=== PATIENT | female | born 1990 | race Caucasian/White ===

== ENCOUNTER 2016-06-20 00:33 | Observation (INO) ==
[2016-06-20 01:55] LABS: Bilirubin,Urine Negative (Negative); Blood,Urine Negative (Negative); Clarity,Urine Cloudy (Clear); Color,Urine Yellow (Yellow); Glucose,Urine (UA) Normal (Normal); Ketones,Urine Negative (Negative); Leukocyte Esterase,Urine Large (Negative); Nitrite,Urine Positive (Negative); Protein,Urine Trace mg/dL (Neg-Trace); Specific Gravity,Urine 1.022 (1.010-1.025); Urobilinogen,Urine Normal (Normal)
[2016-06-20 01:58] LABS: Bacteria,Urine Many per hpf (None-Few); Hyaline Casts,Urine None Seen per lpf (None-Few); Squamous Epithelial Cell,Urine Many per lpf (None-Few); WBC,Urine TNTC per hpf (0-3)
--- NOTE | 2016-06-20 03:27 | OB/GYN Progress Note ---
Date of Encounter: 06/20/16 Time of Encounter: 03:25 - Assessment and Plan (1) and not yet delivered in third trimester Current Visit: Yes Status: Acute (2) 29 weeks gestation of Current Visit: Yes Status: Acute (3) Urinary tract infection affecting care of mother in third trimester, antepartum Current Visit: Yes Status: Acute We will discharge patient home with a prescription for Macrobid 100 mg twice a day for 10 days to follow-up in the office this week (4) uterine contractions in third trimester, antepartum Current Visit: Yes Status: Acute Subjective - Subjective Interval history: Patient is a 25-year-old 3 para 2 at 29-3/7 weeks who presented to labor and delivery with complaint of contractions for the past 4 days with lower abdominal discomfort. Patient has a history of 2 previous sections. Did not bother: The office about this contractions. Patient was advised to come to labor and delivery for evaluation. Upon arrival she had multiple complaints that most of them were easily transected. Patient was show no since contractions on the monitor she was unable to give us a urinalysis but she was complaining of urinary symptoms. Patient has a history of frequent UTIs. She was unable to give us a urine had a very dark coloration and a foul odor. Urinalysis did come back showing she looked like she had a UTI with nitrates and leukocytes and many bacteria. Patient will be discharged home with prescription for Macrobid 100 mg twice a day we just recently on Keflex so we will try something different. She is having good movement at this time and no vaginal bleeding. Antepartum ROS: contractions Objective - Vital Signs Vital Signs: Intake and Output 06/19/16 06/19/16 06/20/16 15:59 23:59 08:59 Other: Weight 83.3 kg Patient Weight 06/21/16 00:59 Weight 83.3 kg - Exam FHR: category 1 FHR comments: heart tones 140s reactive no contraction seen Abdomen: Present: gravid Uterus: Present: firm Cervical dilation: No cervical exam performed since no contraction seen and only 29 weeks - Labs Labs: Abnormal lab results Urine Clarity Cloudy (Clear) A 06/20/16 01:35 Urine Nitrite Positive (Negative) A 06/20/16 01:35 Ur Leukocyte Esterase Large (Negative) H 06/20/16 01:35 Urine Microscopic RBC 3-5 per hpf (0-3) H 06/20/16 01:35 Urine Microscopic WBC TNTC per hpf (0-3) H 06/20/16 01:35 Ur Squamous Epith Cells Many per lpf (None-Few) H 06/20/16 01:35 Urine Bacteria Many per hpf (None-Few) H 06/20/16 01:35 Ur Culture Indicated? YES (NO) A 06/20/16 01:35
== END 2016-06-20 03:36 | disposition home or self-care (01) ==
LOC: 1NENULAB
PROVIDERS: ADMIT Obstetrics & Gynecology; ATTEND Obstetrics & Gynecology

== ENCOUNTER 2016-06-30 16:34 | Observation (INO) ==
--- NOTE | 2016-06-30 20:11 | OB/GYN Progress Note ---
Date of Encounter: 06/30/16 Time of Encounter: 19:30 - Assessment and Plan (1) 31 weeks gestation of Status: Acute (2) and not yet delivered in third trimester Status: Acute (3) Abdominal cramping affecting Status: Acute No contractions on the monitor. Patient was seen and evaluated by nursing. She desired discharge home before being seen and was not erick. She received her second dose of steroids in the office today prior to coming over. Objective - Vital Signs Vital Signs: Intake and Output 06/30/16 06/30/16 06/30/16 07:59 15:59 23:59 Other: Weight 85.4 kg Patient Weight 06/30/16 23:59 Weight 85.4 kg
== END 2016-06-30 19:59 | disposition home or self-care (01) ==
LOC: 1NENULAB
PROVIDERS: ADMIT Obstetrics & Gynecology; ATTEND Obstetrics & Gynecology

== ENCOUNTER 2016-08-16 21:51 | Observation (INO) ==
[2016-08-16 22:13] VITALS: BP 119/74
[2016-08-16 22:29] LABS: Bilirubin,Urine Negative (Negative); Blood,Urine Negative (Negative); Clarity,Urine Cloudy (Clear); Color,Urine Yellow (Yellow); Glucose,Urine (UA) Normal (Normal); Ketones,Urine Negative (Negative); Leukocyte Esterase,Urine Large (Negative); Nitrite,Urine Positive (Negative); Protein,Urine Trace mg/dL (Neg-Trace); Specific Gravity,Urine 1.022 (1.010-1.025); Urobilinogen,Urine Normal (Normal)
[2016-08-16 22:31] LABS: Bacteria,Urine Many per hpf (None-Few); RBC,Urine 0-3 per hpf (0-3); Squamous Epithelial Cell,Urine Many per lpf (None-Few); WBC,Urine TNTC per hpf (0-3)
[2016-08-16 22:42] LABS: Hyaline Casts,Urine None Seen per lpf (None-Few); Mucus,Urine Moderate (Few)
--- NOTE | 2016-08-16 22:53 | Discharge Summary ---
Date of Encounter: 08/16/16 Time of Encounter: 22:45 - Discharge Diagnosis (1) Urinary tract infection affecting care of mother in third trimester, antepartum Priority: Primary Status: Acute Comments: Patient presents to labor and delivery with c/o leaking clear fluid frequently from the vagina. She states the leaking occurs more when leaning forward or walking. She states the leaking does not soak through to her pants. She c/o intermittent contractions throughout the past few days, but is not in pain. She states positive movement. She denies headache, vision changes, and epigastric pain. She denies vaginal bleeding and intercourse in the past 48 hours. She is scheduled for a repeat next Tuesday. Urinalysis indicative of UTI Rx sent home for patient to fill in the morning Follow up in office as scheduled for routine care Education provided on SROM, Kick counts, and Labor Precautions - Discharge Medications Prescriptions: Cephalexin 1,000 mg PO Q12H 10 Days Home Medications: Flintstones Gummies PO DAILY 06/20/16 [History] Cephalexin 1,000 mg PO Q12H 10 Days 08/16/16 [Rx] Allergies/Adverse Reactions: Allergies escitalopram [From Lexapro] Allergy (Verified 01/22/16 18:46) Swelling of Lip/Tongue/Throat magnesium Allergy (Verified 06/30/16 17:24) See Comments tachycardia promethazine [From Phenergan] Allergy (Verified 01/22/16 18:46) Flushing Carbinoxamine [From Rondec] Adverse Reaction (Verified 06/20/16 01:04) Agitated codeine Adverse Reaction (Verified 06/20/16 01:03) Nausea pseudoephedrine [From Rondec] Adverse Reaction (Verified 06/20/16 01:04) Agitated Data Procedures and tests throughout hospitalization: Laboratory Tests 08/16/16 22:19 Urine Color Yellow Urine Clarity Cloudy A Urine pH 6.0 Ur Specific Murdock 1.022 Urine Protein Trace Urine Glucose (UA) Normal Urine Ketones Negative Urine Blood Negative Urine Nitrite Positive A Urine Bilirubin Negative Urine Urobilinogen Normal Ur Leukocyte Esterase Large H Urine Microscopic RBC 0-3 Urine Microscopic WBC TNTC H Ur Squamous Epith Cells Many H Urine Bacteria Many H Hyaline Casts None Seen Urine Mucus Moderate H Ur Culture Indicated? YES A Labs on day of discharge: Labs from last 24 hours 08/16/16 22:19 Urine Color Yellow Urine Clarity Cloudy A Urine pH 6.0 Ur Specific Murdock 1.022 Urine Protein Trace Urine Glucose (UA) Normal Urine Ketones Negative Urine Blood Negative Urine Nitrite Positive A Urine Bilirubin Negative Urine Urobilinogen Normal Ur Leukocyte Esterase Large H Urine Microscopic RBC 0-3 Urine Microscopic WBC TNTC H Ur Squamous Epith Cells Many H Urine Bacteria Many H Hyaline Casts None Seen Urine Mucus Moderate H Ur Culture Indicated? YES A Date of admission: 08/16/16 21:51 Primary care physician: PCP NO Discharging clinician: Chayo Ferraro - Patient Status Disposition: Home, Self-Care Condition: Good Functional capacity at discharge: independent ambulation - Discharge Instructions Instructions: Urinary Tract Infection in Women (DC) Follow Up With: NO,PCP [Primary Care Provider] - Amrik Boone MD [Partnered Physician] - Additional Instructions: LABOR AND DELIVERY DISCHARGE INSTRUCTIONS Signs and Symptoms to be Reported to your Doctor Immediately: * Sudden gush, continuous or intermittent lead of fluid from vagina (note the time of gush and color of fluid) * Onset of bright red vaginal bleeding with or without pain (if you had a vaginal exam during this visit you may notice some dark red spotting. This is normal.) * Contractions that are 5 minutes apart (from the beginning of one contraction to the beginning of the next) and last 45-60 seonds; contractions that you can no longer walk, talk or laugh through. * A change in the baby's activity. This could be an increase or decrease in activity. * Severe headache which does not go away with tylenol. * Sudden swelling in the face, hands, arms and/or legs. * Upper abdominal pain - sometimes associated with heartburn or nausea and is not relieved by Maalox, Mylanta or Tums. * Kick Counts __ One hour after a meal, lay down on one side in a quiet place. Count the number of time the baby moves during an hour. If less than 6 movements, notify your physician Diet: *Force fluids, 8 to 10 tall glasses of fluid per day - may include popsicles and jello *Limit caffeine - this includes chocolate, coffee, tea, any soft drink containing such as all eulalia, Merrick Yellow and Mountain Dew - Diet and Activity Diet: regular diet Hospital Course GUIDANCE DIRECTOR Time Attestation: Total time spent providing and/or coordinating discharge services: Time Spent: Less than 30 minutes Exam - Constitutional Vitals: Temp Pulse Resp BP 98.7 F 116 16 119/74 08/16/16 22:01 08/16/16 22:01 08/16/16 22:01 08/16/16 22:01 General appearance IM: cooperative, A&O X 3, pleasant - Respiratory Respiratory exam: Present: CTAB - Cardiovascular Cardiovascular exam IM: Present: RRR, +S1, +S2 - GI/Abdominal GI/Abdominal exam IM: normal bowel sounds, soft - Additional comments: Uterus palpates soft. No contractions palpable or per TOCO FHTs 115 with moderate variability and 15x15 accels. No decels present - Extremities Exam Extremities exam IM: Present: normal capillary refill, normal inspection, radial pulses palpable and symetrical - Neurological Exam Neurological exam: alert, oriented X3 - VTE Reasons for not Prescribing Prophylaxis: Treatment not Indicated - Low risk for VTE
== END 2016-08-16 23:00 | disposition home or self-care (01) ==
LOC: 1NENULAB
PROVIDERS: ADMIT Obstetrics & Gynecology; ATTEND Obstetrics & Gynecology

== ENCOUNTER 2016-08-18 22:18 | Observation (INO) ==
--- NOTE | 2016-08-18 22:42 | Discharge Summary ---
Date of Encounter: 08/18/16 Time of Encounter: 22:43 - Discharge Diagnosis (1) 38 weeks gestation of Priority: Primary Status: Acute Comments: observations for rule out rupture of membranes. (2) NST (non-stress test) reactive Priority: Secondary Status: Acute Comments: baseline 130 bpm moderate variability +15x15 accels no decels noted. - Discharge Medications Home Medications: Flintstones Gummies PO DAILY 06/20/16 [History] cephALEXin [Cephalexin] 1,000 mg PO Q12H 10 Days 08/16/16 [Rx] Allergies/Adverse Reactions: Allergies escitalopram [From Lexapro] Allergy (Verified 01/22/16 18:46) Swelling of Lip/Tongue/Throat magnesium Allergy (Verified 06/30/16 17:24) See Comments tachycardia promethazine [From Phenergan] Allergy (Verified 01/22/16 18:46) Flushing Carbinoxamine [From Rondec] Adverse Reaction (Verified 06/20/16 01:04) Agitated codeine Adverse Reaction (Verified 06/20/16 01:03) Nausea pseudoephedrine [From Rondec] Adverse Reaction (Verified 06/20/16 01:04) Agitated Date of admission: 08/18/16 22:18 Discharging clinician: Dior Mann Anticipated date of discharge: 08/18/16 - Patient Status Disposition: Home, Self-Care Condition: Good - Discharge Instructions - Diet and Activity Activity: increase activity as tolerated Diet: regular diet Hospital Course SLABBER LIGHT Hospital course: Patient is 26 y/o at 38w0d. Presented to labor and delivery with questionable rupture of membranes. Patient denies any leaking since small gush of fluid following bending over. Patient reports +FM, denies any new leaking of fluid or regular contractions. Time Attestation: Total time spent providing and/or coordinating discharge services: Time Spent: Less than 30 minutes Exam - Other Additional findings: Patient seen and assessed by RN. RN reports perineum is dry, nitrazine is negative. Patient reports urine leaks all the time with bending and jumping. SVE by RN 1-2 cm and bollatable. FHR 130 bpm moderate variability +15x15 accels no decels noted. Irregular contractions. Cat 1 Tracing. Reactive NST. - VTE Reasons for not Prescribing Prophylaxis: Treatment not Indicated - Low risk for VTE
== END 2016-08-18 23:00 | disposition home or self-care (01) ==
LOC: 1NENULAB
PROVIDERS: ADMIT Obstetrics & Gynecology; ATTEND Obstetrics & Gynecology

== ENCOUNTER 2016-08-20 19:16 | Inpatient (IN) ==
--- NOTE | 2016-08-20 18:24 | OB/GYN History & Physical ---
Date of Encounter: 08/20/16 Time of Encounter: 18:14 Assessment and Plan (1) Uterine contractions during Current visit: Yes Status: Acute FHT's 140's with moderate variability, 15x15 accels, and no decels Category I tracing TOCO contractions every 2-4 minutes lasting 45 seconds in length. Palpate moderate. uterus palpates soft between contractions IV fluids Nubain for rest Serial SVE for cervical change Discussed POC with Dr De (2) Urinary tract infection affecting care of mother in third trimester, antepartum Current visit: Yes Status: Acute Start IV ampicillin 1gm q6 hours for UTI; may switch to PO when patient is no longer PO IV fluids (3) Previous delivery affecting Current visit: Yes Status: Acute Monitor serial SVEs for cervical change Dr De aware of patient's current status Possible repeat tonight History of Present Illness Chief complaint: contractions HPI: Ms. Nair is a 26 year old at 38 weeks and 2 days gestation that presents to labor and delivery with complaints of frequent contractions with low back pain and diarrhea that began at 0200. She was seen in triage on Tuesday with complaints of leaking fluid and found to have a urinary tract infection that cultured positive for e. Coli. The patient states she was not taking her medication that was Rx'd. She states positive movement. She denies LOF, vaginal bleeding, headache, vision changes, and epigastric pain. She received betamethasone previously during this for history of and threatened labor. On 08/17/16 she was seen in the office and had a growth scan completed which shows an CHARLETTE of 14 and an LGA fetus greater than the 90th percentile. Labs: GBS negative Blood Type O+ antibody negative Hep B nonreactive HIV nonreactive Treponema negative Rubella immune Varicella immune Past Med Surg Social Fam HX - Past Medical History Medical history: asthma, GERD Psychiatric history: anxiety, depression - Past Surgical History Surgical History: appendectomy, - Social History Smoking Status: Former smoker Smokeless Tobacco Status: No Alcohol use: none Drug use: none - Family History Grandmother Adopted: No Family Member Ethnicity: Non- Living Status: Still Living Hx Family Cardiac Disorders: No Hx Family Respiratory Disorders: No Hx Family Cancer: No Hx Family GI Disorders: No Hx Family Genitourinary Disorders: No Hx Family Endocrine Disorder: No Hx Family Musculoskeletal Disorders: No Hx Family Neuromuscular Disorders: No Hx Family Neurologic Disorders: No Hx Family HEENT Disorders: No Hx Family Autoimmune Disorders: No Hx Family Reproductive Disorders: No Hx Family Psychosocial Disorders: No Hx Family Medical Disorders: No Obstetrical History - Pregnancies : 3 Para: 2 Livin Medications and Allergies Flintstones Gummies 1 tab PO DAILY 06/20/16 [History] Ampicillin Trihydrate 500 mg PO Q6H #28 capsule 08/20/16 [Rx] Allergies escitalopram [From Lexapro] Allergy (Verified 01/22/16 18:46) Swelling of Lip/Tongue/Throat magnesium Allergy (Verified 06/30/16 17:24) See Comments tachycardia promethazine [From Phenergan] Allergy (Verified 01/22/16 18:46) Flushing Carbinoxamine [From Rondec] Adverse Reaction (Verified 06/20/16 01:04) Agitated codeine Adverse Reaction (Verified 06/20/16 01:03) Nausea pseudoephedrine [From Rondec] Adverse Reaction (Verified 06/20/16 01:04) Agitated Review of System OB All systems PM: reviewed and no additional remarkable complaints except as stated Exam - Constitutional Constitutional: well developed, well nourished, no acute distress, average body habitus - HEENT HEENT: Normocephaly, Mucus Membranes Moist - Neck Neck exam: full ROM, normal inspection - Lungs Respiratory exam: CTAB - Cardiovascular Cardiovascular exam: RRR, +S1, +S2 - Abdomen Abdomen: Present: bowel sounds normal, gravid, non tender - Extremities Extremities exam: normal capillary refill, normal inspection, warm, radial pulses palpable and symetrical Deep Tendon Reflex Grade: 1+ Diminished - Vagina Vagina: Present: normal moisture - Cervix Dilation: 2 (per RN) Effacement: 50 (per RN) Station: -2 - Uterus Uterus exam: Present: normal size, normal contour - Anus/Rectum Anus/Rectum: Present: normal perianal skin Results All other labs normal. - VTE Reasons for not Prescribing Prophylaxis: Treatment not Indicated - Low risk for VTE
[2016-08-20 18:47] LABS: Basophils % 0.3 %; Eosinophils # 0.1 K/mcL (0.0-0.6); Eosinophils % 0.8 %; Hematocrit 29.8 % (35.3-44.9); Hemoglobin 8.9 g/dL (11.5-15.4); Immature Granulocytes % 1.8 % (0-4); Lymphocytes # 1.4 K/mcL (0.6-4.6); Mean Corpuscular HGB Conc 29.9 g/dL (31.6-35.5); Mean Corpuscular Hemoglobin 22.5 pg (28.0-33.3); Mean Corpuscular Volume 75.3 fL (83.0-100.0); Mean Platelet Volume 10.6 fL (9.4-12.4); Monocytes # 0.6 K/mcL (0.0-1.3); Monocytes % 6.2 %; Neutrophils # 7.2 K/mcL (1.6-8.9); Platelet Count 200 K/mcL (140-400); Red Blood Count 3.96 M/mcL (3.82-4.97); Red Cell Distribution Width 19.2 % (11.5-14.5); Segmented Neutrophils % 75.9 %
[~2016-08-20 19:16] MED LIST: *HR* Nalbuphine 20 MG/ML AMPUL IVP PRN; Ampicillin 1,000 MG in 0.9 % Sodium Chloride Mini Bag 100 ML IVPB ONE; D5% in Lactated Ringers 1,000 ML IVC ONE; D5% in Lactated Ringers 1,000 ML IVC SCH; Ondansetron ODT 4 MG TAB.RAPDIS SL PRN; Ringers Solution, Lactated 1,000 ML IVC ONE; Ringers Solution, Lactated 1,000 ML ONE
--- NOTE | 2016-08-20 19:42 | OB Labor Progress Note ---
Date of Encounter: 08/20/16 Time of Encounter: 19:39 Labor Progress Note - Subjective Subjective: Patient breathing through contractions in the bed. States the nubain made her feel strange - Vital Signs Vital Signs: VSS - Cervix Cervix: 3/70/-2 soft anterior - Heart Tones Heart Tones: FHTs 130 with moderate variability, 15 x 15 accels, no decels - [place] Whitney [place]: Contractions every 2-4 minutes, 60 seconds in length - Plan Plan: Dr De notified of cervical change. States she is to have a section this evening.
[2016-08-20] MEDS ORDERED: Famotidine 20 MG/2 ML VIAL IVP ONE (19:49)
[2016-08-20] MEDS ORDERED: Metoclopramide 10 MG/2 ML VIAL IVP ONE (19:49)
[2016-08-20] MEDS ORDERED: Oxytocin 20 units/ LR 1000 mL 20 UNIT/1,000 ML BAG IVC ONE (19:49)
[2016-08-20] MEDS ORDERED: CeFAZolin Pre 2,000 MG/100 ML 2,000 MG/100 ML BAG IVPB ONE (19:49)
[2016-08-20] MEDS ORDERED: Ringers Solution, Lactated 1,000 ML ONE ×3 (19:50→21:45)
[2016-08-20] MEDS ORDERED: Ringers Solution, Lactated 1,000 ML IVC SCH (20:00)
[2016-08-20] MEDS ORDERED: *HR* Morphine Sulfate/PF 5 MG/10 ML AMPUL ONE (20:18)
[2016-08-20] MEDS ORDERED: EPHEDrine 50 MG/ML VIAL ONE (20:21)
[2016-08-20] MEDS ORDERED: *HR* Oxytocin 10 UNIT/ML VIAL IM ONE ×2 (20:24→21:48)
--- NOTE | 2016-08-20 21:19 | Anesthesia Evaluation PreOp ---
Date of Encounter: 08/20/16 Time of Encounter: 18:45 - Past History Planned Operation: repeat c section Cardiac History: Denies any Significant Hx Pulmonary History: Asthma (as a child) FORECAST ANALYST History: Denies Any Significant HX Other Medical History: GERD Anesthesia History: No Prior Anesthetic Complications (bladder stretch, scalp cyst, appendectomy, c section x 2, ear tubes) Alcohol Use: none Drug use: none Medications and Allergies Flintstones Gummies 1 tab PO DAILY 06/20/16 [History] Ampicillin Trihydrate 500 mg PO Q6H #28 capsule 08/20/16 [Rx] Allergies escitalopram [From Lexapro] Allergy (Verified 01/22/16 18:46) Swelling of Lip/Tongue/Throat magnesium Allergy (Verified 06/30/16 17:24) See Comments tachycardia promethazine [From Phenergan] Allergy (Verified 01/22/16 18:46) Flushing Carbinoxamine [From Rondec] Adverse Reaction (Verified 06/20/16 01:04) Agitated codeine Adverse Reaction (Verified 06/20/16 01:03) Nausea pseudoephedrine [From Rondec] Adverse Reaction (Verified 06/20/16 01:04) Agitated - Meds/Allergy Pre-op Review Medications Reviewed: Yes Allergies Reviewed: Yes Beta Blockers on Current Med List: No Anesthesia Results - Labs 08/20/16 18:38 Anesthesia Exam 3 Vital Signs Time 1845 BP 133/82 Pulse 126 Resp 18 O2 Sat Height: 65 Weight: 188 pounds NPO (# of Hours): 12 Pain Scale: 2 Pain Scale Used: Numeric (1 - 10) - HEENT Pupil (Motor): Pupils equal Mallampati: II Teeth: Normal Oral Opening: Greater than 3 - FORECAST ANALYST LOC: Oriented FORECAST ANALYST Motor: Normal RUE, Normal LUE, Normal RLE, Normal LLE, Normal Face FORECAST ANALYST Sensory: Normal: RUE, LUE, RLE, LLE, Face - Cardiac Rhythm: Regular Murmur: None JVD: No Carotid Bruit: No - Pulmonary Breath Sounds: bilateral Clear Respiratory Effort: Symmetrical Anesthesia Assess/Plan ASA Score: 2 Modified Mario Scale for Level of Consciousness: Cooperative, oriented, and tranquil Anesthetic Plan: Regional Monitoring Plan: Standard Monitors Recovery Plan: PACU
[2016-08-20] MEDS ORDERED: Ondansetron 4 MG/2 ML VIAL IVP PRN ×2 (21:28→22:21)
[2016-08-20] MEDS ORDERED: *HR* HYDROmorphone (PF) 1 MG/ML SYRINGE IVP PRN (21:28)
[2016-08-20] MEDS ORDERED: *HR* OxyCODONE/APAP 5/325 TABLET PO PRN ×2 (21:28→22:21)
[2016-08-20] MEDS ORDERED: Ibuprofen 400 MG TABLET PO PRN (21:28)
[2016-08-20] MEDS ORDERED: *HR* Morphine 2 MG/ML SYRINGE IVP PRN (21:28)
[2016-08-20] MEDS ORDERED: Naloxone 0.4 MG/ML INJ IVP PRN (21:28)
[2016-08-20] MEDS ORDERED: Acetaminophen IV 1,000 MG/100 ML INFUS..BTL IVPB ONE (21:36)
[2016-08-20] MEDS ORDERED: *HR* Midazolam HCl 2 MG/2 ML VIAL ONE (21:42)
[2016-08-20] MEDS ORDERED: Metoclopramide 10 MG/2 ML VIAL IVP PRN (22:21)
[2016-08-20] MEDS ORDERED: Simethicone 80 MG TAB.CHEW PO PRN (22:21)
[2016-08-20] MEDS ORDERED: Sennosides 8.6 MG TABLET PO PRN (22:21)
--- NOTE | 2016-08-20 22:27 | OB/GYN Procedure Note ---
Section - Date of procedure: 08/20/16 Preop diagnosis: desires repeat , desires sterilization Post-op diagnosis: same Procedure: repeat low transverse, bilateral tubal ligation Surgeon: Mohit De Estimated blood loss (cc): 500 Anesthesiologist: Kassy Link Anesthesia Type: Spinal section complications: none Disposition: PACU Specimens: Placenta, Right tube segment, Left tube segment - (s) A Delivery Date: 08/20/16 Delivery Time: 21:26 Presentation: vertex Gender: Male Pounds: 7 Ounces: 8 at 1 minute: 8 at 5 minutes: 9 Specimens collected: cord blood Placenta: complete extraction - Narrative Narrative: The patient was taken to the operating room. After satisfactory anesthesia was achieved, she was placed in supine position Sue catheter inserted and prepped and draped in usual manner. After appropriate timeout, the abdomen was entered through standard Maylard incision. The Luz retractor was placed. The peritoneum overlying the lower uterine segment was incised in the U-shaped fashion. Uterine cavity was entered sharply extended laterally. Membranes ruptured which yielded clear fluid. With fundal pressure , the head was delivered. suctioned upon delivery of the head. Nuchal cord was relieved. The remainder of the was delivered , umbilical cord doubly clamped and cut, and handed to nursery staff for further evaluation. Placenta was removed. Uterus closed in single layer using 0 Monocryl. Attention then turned to the tubal. The distal end of each tube was resected and sent to pathology for analysis. Pedicles were ligated using a 2-0 chromic. After assurance of hemostasis, the peritoneum was reapproximated with a 2-0 Vicryl. The Luz retractor was removed. The abdomen was closed in fashion using 0 Vicryl on the fascia, 3-0 Monocryl on the skin. Sterile dressing was applied. Patient did well and was taken to recovery room in satisfactory condition. Counts were correct.
[2016-08-20] MEDS ORDERED: Oxytocin 20 units/ LR 1000 mL 20 UNIT/1,000 ML BAG IVC SCH (22:30)
[2016-08-21] MEDS ORDERED: Ampicillin 1,000 MG in 0.9 % Sodium Chloride Mini Bag 100 ML IVPB SCH
--- NOTE | 2016-08-21 00:23 | Anesthesia Evaluation Post Op ---
Date of Encounter: 08/21/16 Time of Encounter: 00:14 - Vital Signs Vital Signs: 3 Vital Signs Time 0014 BP 107/61 Pulse 117 Resp 16 O2 Sat 98 - Lungs Lungs: Clear Ascult./Percussion - Airway Airway: Non-obstructed - Cardiovascular Regular Rate - Mental Status Mental Status: Alert & Oriented, Answers Appropriately, Baseline Status - Pain Pain Scale: 0 Pain Scale used: Numeric (1 - 10) - Nausea Vomiting Nausea Vomiting: Not Present - Hydration Hydration: NPO, Sue catheter Notes: 08/21/16 00:22 patient moving legs well at present - Discharge PostOp Status: Transfer Patient to floor
[2016-08-21 03:01] LABS: Basophils % 0.4 %; Eosinophils % 0.4 %; Hematocrit 26.1 % (35.3-44.9); Hemoglobin 7.9 g/dL (11.5-15.4); Immature Granulocytes % 1.4 % (0-4); Lymphocytes # 1.7 K/mcL (0.6-4.6); Lymphocytes % 15.7 %; Mean Corpuscular HGB Conc 30.3 g/dL (31.6-35.5); Mean Corpuscular Hemoglobin 22.4 pg (28.0-33.3); Mean Corpuscular Volume 74.1 fL (83.0-100.0); Mean Platelet Volume 10.6 fL (9.4-12.4); Monocytes # 0.7 K/mcL (0.0-1.3); Monocytes % 6.3 %; Neutrophils # 8.4 K/mcL (1.6-8.9); Platelet Count 173 K/mcL (140-400); Red Blood Count 3.52 M/mcL (3.82-4.97); Red Cell Distribution Width 18.9 % (11.5-14.5); Segmented Neutrophils % 75.8 %
[2016-08-21] MEDS ORDERED: *HR* Phenylephrine 10 MG/ML VIAL ONE (06:43)
[2016-08-21] MEDS: Prenatal Vit/FA 1 EACH TABLET PO SCH (08:09)
--- NOTE | 2016-08-21 10:22 | OB/GYN Progress Note ---
Date of Encounter: 08/21/16 Time of Encounter: 10:20 - Assessment and Plan (1) S/P section Current Visit: Yes Status: Acute Routine postop care (2) Previous delivery affecting Current Visit: Yes Status: Acute Subjective - Subjective Interval history: Patient is POD #1 for repeat section. No comlaints currently. Patient reports: appetite normal, voiding normally, pain well controlled, ambulating normally : doing well Objective - Vital Signs Latest vital signs: Vital Signs Temp Pulse Resp BP Pulse Ox 08/21/16 03:45 98.8 F 102 16 106/73 97 08/21/16 02:45 98.2 F 91 16 104/68 96 08/21/16 01:45 98.4 F 104 14 100/62 97 08/21/16 01:17 16 08/21/16 01:16 98.1 F 96 16 110/72 97 08/21/16 00:45 98.5 F 106 18 109/72 96 Intake and Output 08/20/16 08/21/16 08/21/16 23:59 07:59 15:59 Output Total 1500 / 1500 Balance -1500 / -1500 Output: Catheter 1500 / 1500 Other: Weight 82.372 kg Patient Weight 08/21/16 23:59 Weight 82.372 kg - Exam Lungs: bilateral: normal Chest: Normal S1, Normal S2 Extremities: Present: normal Abdomen: Present: normal appearance, soft. Absent: distention, tenderness Incision: Present: normal, dry, intact Uterus: Present: normal, firm Fundal Height: 0 - Labs Labs: Laboratory Results - last 24 hr 08/20/16 08/20/16 08/21/16 18:38 20:01 02:53 WBC 9.5 11.0 RBC 3.96 3.52 L Hgb 8.9 L 7.9 L Hct 29.8 L 26.1 L MCV 75.3 L 74.1 L MCH 22.5 L 22.4 L MCHC 29.9 L 30.3 L RDW 19.2 H 18.9 H Plt Count 200 173 MPV 10.6 10.6 Immature Gran % 1.8 1.4 Seg Neutrophils % 75.9 75.8 Lymphocytes % 15.0 15.7 Monocytes % 6.2 6.3 Eosinophils % 0.8 0.4 Basophils % 0.3 0.4 Neutrophils # 7.2 8.4 Lymphocytes # 1.4 1.7 Monocytes # 0.6 0.7 Eosinophils # 0.1 0.0 Basophils # 0.0 0.0 Blood Type O POSITIVE Antibody Screen NEGATIVE
[2016-08-21] MEDS: Cefdinir 300 MG CAPSULE PO SCH (22:01)
[2016-08-21] MEDS: Ibuprofen 600 MG TABLET PO PRN (22:12)
[2016-08-22] MEDS: Ibuprofen 600 MG TABLET PO PRN (07:58)
[2016-08-22] MEDS: Prenatal Vit/FA 1 EACH TABLET PO SCH (08:00)
[2016-08-22] MEDS: Cefdinir 300 MG CAPSULE PO SCH (08:01)
[2016-08-22 08:22] VITALS: BP 103/65
--- NOTE | 2016-08-22 10:11 | Discharge Summary ---
Date of Encounter: 08/22/16 Time of Encounter: 10:10 - Discharge Diagnosis (1) Previous delivery affecting Priority: Primary Status: Resolved (2) S/P section Priority: Secondary Status: Resolved (3) 38 weeks gestation of Priority: Secondary Status: Resolved - Discharge Medications Prescriptions: OxyCODONE/APAP 5/325 [Percocet 5/325 MG] 1 each PO Q4HR PRN 40 Days PRN Reason: Moderate pain 4-6 Ibuprofen [Motrin] 600 mg PO Q6HR PRN #40 tablet PRN Reason: Cramping Home Medications: Flintstones Gummies 1 tab PO DAILY 06/20/16 [History] Ampicillin Trihydrate 500 mg PO Q6H #28 capsule 08/20/16 [Rx] Ibuprofen [Motrin] 600 mg PO Q6HR PRN #40 tablet 08/22/16 [Rx] OxyCODONE/APAP 5/325 [Percocet 5/325 MG] 1 each PO Q4HR PRN 40 Days 08/22/16 [Rx ] Allergies/Adverse Reactions: Allergies escitalopram [From Lexapro] Allergy (Verified 01/22/16 18:46) Swelling of Lip/Tongue/Throat magnesium Allergy (Verified 06/30/16 17:24) See Comments tachycardia promethazine [From Phenergan] Allergy (Verified 01/22/16 18:46) Flushing Amoxicillin [From Augmentin] Adverse Reaction (Verified 08/21/16 20:37) Vomiting Carbinoxamine [From Rondec] Adverse Reaction (Verified 06/20/16 01:04) Agitated clavulanic acid [From Augmentin] Adverse Reaction (Verified 08/21/16 20:37) Vomiting codeine Adverse Reaction (Verified 06/20/16 01:03) Nausea pseudoephedrine [From Rondec] Adverse Reaction (Verified 06/20/16 01:04) Agitated Data Procedures and tests throughout hospitalization: Laboratory Tests 08/20/16 08/20/16 08/21/16 18:38 20:01 02:53 WBC 9.5 11.0 RBC 3.96 3.52 L Hgb 8.9 L 7.9 L Hct 29.8 L 26.1 L MCV 75.3 L 74.1 L MCH 22.5 L 22.4 L MCHC 29.9 L 30.3 L RDW 19.2 H 18.9 H Plt Count 200 173 MPV 10.6 10.6 Immature Gran % 1.8 1.4 Seg Neutrophils % 75.9 75.8 Lymphocytes % 15.0 15.7 Monocytes % 6.2 6.3 Eosinophils % 0.8 0.4 Basophils % 0.3 0.4 Neutrophils # 7.2 8.4 Lymphocytes # 1.4 1.7 Monocytes # 0.6 0.7 Eosinophils # 0.1 0.0 Basophils # 0.0 0.0 Blood Type O POSITIVE Antibody Screen NEGATIVE Date of admission: 08/20/16 19:49 Primary care physician: PCP NO - Patient Status Disposition: Home, Self-Care Condition: Good Functional capacity at discharge: independent ambulation Overall status at discharge: patient is progressing back to baseline - Discharge Instructions Follow Up With: BOB,PCP [Primary Care Provider] - Hospital Course [employer] Time Attestation: Total time spent providing and/or coordinating discharge services: Exam - Constitutional Vitals: Temp Pulse Resp BP Pulse Ox 97.9 F 100 16 103/65 98 08/22/16 07:50 08/22/16 07:50 08/22/16 07:50 08/22/16 07:50 08/22/16 07:50 General appearance IM: A&O X 3 - Respiratory Respiratory exam: Present: CTAB - Cardiovascular Cardiovascular exam IM: Present: RRR - GI/Abdominal GI/Abdominal exam IM: normal bowel sounds Incision: normal, intact - Uterus Position: 2 Fingers Above Umbilicus - Extremities Exam Extremities exam IM: Present: full ROM - Neurological Exam Neurological exam: CN II-XII intact - VTE Reasons for not Prescribing Prophylaxis: Treatment not Indicated - Low risk for VTE Documentation of Mechanical Device: Intermittent pneumatic compression device - Attending Attestation oseas [place] md [email or web address]
== END 2016-08-22 11:53 | disposition home or self-care (01) | DRG 540 ==
LOC: 1NENULAB → 1NENUOBS 08-21 00:36
PROVIDERS: ADMIT Obstetrics & Gynecology; ATTEND Obstetrics & Gynecology